=== PATIENT | male | born 1940 | race Caucasian/White ===

== ENCOUNTER → 2023-06-20 | Outpatient (CLI) | payer OTHER | END | disposition home or self-care (01) | LOC: CARD DIAG 11:40 | PROVIDERS: ATTEND Chiropractor | DX: I08.8 Other rheumatic multiple valve diseases (principal); I48.91 Unspecified atrial fibrillation; R01.1 Cardiac murmur, unspecified; I49.8 Other specified cardiac arrhythmias | CPT/HCPCS: 93005; 93306 ==